=== PATIENT | male | born 1990 | race Caucasian/White ===

== ENCOUNTER 2022-01-06 13:30 | Emergency (ER) | payer BC ==
[2022-01-06] MEDS ORDERED: DIPH,PERTUS(ACELL)TETVAC-LF 0.5 ML VIAL IM ONE (13:35)
[2022-01-06 13:40] VITALS: BP 158/108; PULSE 103; RESP 18
--- NOTE | 2022-01-06 13:57 | ED ---
General Adult HPI - General Chief complaint: Needlestick/Exposure Stated complaint: Needlestick Exposure Time Seen by Provider: 01/06/22 13:34 Source: patient, RN notes reviewed Mode of arrival: ambulatory Limitations: no limitations - History of Present Illness Initial comments: Patient is a pleasant 31-year-old male presenting to the emergency Department with scalpel injury. Patient was performing a procedure. Following this he accidentally struck himself left thumb with scalpel. There was mild bleeding. Area was cleaned out and bandage applied. Patient denies any other concerns. Unclear last tetanus. - Related Data Allergies Allergy/AdvReac Type Severity Reaction Status Date / Time No Known Allergies Allergy Verified 01/06/22 13:43 Review of Systems ROS Statement: Those systems with pertinent positive or pertinent negative responses have been documented in the HPI. ROS Other: All systems not noted in ROS Statement are negative. Past Medical History Past Medical History: Asthma Past Surgical History: No Surgical Hx Reported Smoking Status: Never smoker Past Alcohol Use History: Occasional Past Drug Use History: None Reported General Exam Limitations: no limitations General appearance: alert, in no apparent distress Head exam: Present: normocephalic Respiratory exam: Present: normal lung sounds bilaterally Cardiovascular Exam: Present: regular rate, normal rhythm Extremities exam: Present: other (Bandage left thumb) Neurological exam: Present: alert Psychiatric exam: Present: normal affect, normal mood Skin exam: Present: other (Left thumb puncture) Course Vital Signs 01/06/22 13:36 Pulse Rate 103 H Respiratory 18 Rate Blood Pressure 158/108 O2 Sat by Pulse 97 Oximetry Medical Decision Making - Medical Decision Making Source HIV were reported as negative by lab. Patient advised to follow-up regarding blood pressure. Disposition Clinical Impression: Puncture, Exposure to blood Disposition: HOME SELF-CARE Condition: Stable Instructions (If sedation given, give patient instructions): Needle Stick Injuries (ED) Additional Instructions: Please do follow-up with [employer] services or employee health for further results and further testing. Return for illness, thumb problems or other concerns Is patient prescribed a controlled substance at d/c from ED?: No Referrals: Michael Marr DO [Doctor of Osteopathic Medicine] - 1-2 days Time of Disposition: 14:56
[2022-01-06 18:55] LABS: Hepatitis B Surface AB- Quant 49.2 mIU/mL; Hepatitis B Surface Antibody Reactive (Nonreactive); Hepatitis C IgG Antibody Nonreactive (Nonreactive)
[2022-01-06 20:32] LABS: HIV 2 AB Non-Reactive (Non-Reactive); HIV AB P24 Non-Reactive (Non-Reactive); HIV P24 AG Non-Reactive (Non-Reactive)
== END 2022-01-06 14:12 | disposition home or self-care (01) ==
LOC: EC 13:30
DX: S61.032A Puncture wound without foreign body of left thumb without damage to nail, initial encounter (principal); Z77.21 Contact with and (suspected) exposure to potentially hazardous body fluids; J45.909 Unspecified asthma, uncomplicated; Z23 Encounter for immunization; W26.8XXA Contact with other sharp object(s), not elsewhere classified, initial encounter
CPT/HCPCS: 36415; 86706; 86803; 87390; 90471; 90715; 99283